=== PATIENT | male | born 1980 | race Caucasian/White ===

== ENCOUNTER 2019-01-21 13:39 | Emergency (ER) | payer MEDICAID ==
[~2019-01-21] VITALS: Ht 180.3 cm; Wt 99.8 kg
[~2019-01-21 13:39] MED LIST: SUBUTEX8 MG SL
[2019-01-21 13:59] VITALS: Ht 180.3 cm; Wt 99.8 kg
[2019-01-21] MEDS ORDERED: VIBRAMYCIN 100100 MG PO (15:30)
[2019-01-21] MEDS ORDERED: VOLTAREN75 MG PO (15:30)
[2019-01-21 16:29] VITALS: BP 142/108
== END 2019-01-21 16:31 | disposition home or self-care (01) ==
LOC: D.ER 13:39
DX: L03.113 Cellulitis of right upper limb (principal)

== ENCOUNTER 2019-11-07 08:11 | Observation (INO) | payer MEDICAID ==
[~2019-11-07] VITALS: Ht 180.3 cm; Wt 99.5 kg
[~2019-11-07 08:11] MED LIST changes: +VIBRAMYCIN 100100 MG PO; +VOLTAREN75 MG PO
[2019-11-07 08:46] LABS: BASOPHILS 0.4 % (0-2); EOSINOPHILS 4.6 % (0-7); HEMATOCRIT 45.4 % (42.0-54.0); HEMOGLOBIN 15.5 g/dL (13.5-17.5); IMMATURE GRANULOCYTES 0.3 % (0-5); LYMPHOCYTES 23.7 % (15-50); MCH 32.3 pg (26.0-34.0); MCHC 34.1 g/dL (31.0-37.0); MCV 94.6 fL (80.0-100.0); MEAN PLATELET VOLUME 9.1 fL (7.4-10.4); MONOCYTES 9.2 % (2-11); NEUTROPHILS 61.8 % (40-80); PLATELET COUNT 246 10x3/uL (130-400); RDW 12.4 % (11.5-14.5); WBC 9.7 10x3/uL (4.8-10.8)
[2019-11-07 08:49] VITALS: BP 159/95
[2019-11-07 08:55] LABS: CALC OSMOLALITY 272 mosm/kg (275-300); CALCIUM 8.1 mg/dL (8.5-10.1); CARBON DIOXIDE 31.9 mmol/L (21.0-32.0); CHLORIDE - SERUM 103 mmol/L (98-107); CREATININE - SERUM 0.8 mg/dL (0.6-1.3); GLUCOSE 106 mg/dL (74-106); POTASSIUM - SERUM 3.8 mmol/L (3.5-5.1); SODIUM 137 mmol/L (136-145); UREA NITROGEN 9 mg/dL (7-18); eGFR NON AFRICAN AMERICAN > 90 mL/min (90-120)
[2019-11-07 09:01] LABS: INR 0.96 (0.85-1.17); PROTIME 12.8 SECONDS (11.6-15.0)
[2019-11-07 09:02] LABS: APTT 29.8 SECONDS (22.8-39.4)
--- NOTE | 2019-11-07 09:05 | NUR ---
URINE SPEC COLLECTED, LABELED AT BS AND SENT TO LAB
[2019-11-07 09:10] LABS: ALBUMIN 3.2 g/dL (3.4-5.0); ALKALINE PHOSPHATASE 48 U/L (30-120); ALT (SGPT) 82 U/L (10-68); AMYLASE - SERUM 70 U/L (25-115); BILIRUBIN - TOTAL 0.35 mg/dL (0.2-1.3); CKMB 1.5 U/L (0.0-3.6); CREATINE KINASE 75 UL (21-232); LIPASE 119 U/L (73-393); MAGNESIUM - SERUM 1.9 mg/dL (1.8-2.4); PROTEIN - SERUM 6.5 g/dL (6.4-8.2)
[2019-11-07 09:11] LABS: TROPONIN-I < 0.017 ng/mL (0.000-0.060)
[2019-11-07 09:16] LABS: UDS - AMPHET NEGATIVE QUAL (NEGATIVE); UDS - BARB NEGATIVE QUAL (NEGATIVE); UDS - BENZO NEGATIVE QUAL (NEGATIVE); UDS - COCAINE NEGATIVE QUAL (NEGATIVE); UDS - OPIATE NEGATIVE QUAL (NEGATIVE); UDS - PCP NEGATIVE QUAL (NEGATIVE); UDS - THC POSITIVE QUAL (NEGATIVE)
[2019-11-07 09:25] LABS: BILIRUBIN NEGATIVE (NEGATIVE); GLUCOSE NEGATIVE (NEGATIVE); KETONE NEGATIVE (NEGATIVE); NITRITE NEGATIVE (NEGATIVE); UROBILINOGEN NORMAL (NORMAL)
[2019-11-07 09:35] VITALS: BP 155/95
--- NOTE | 2019-11-07 13:50 | NUR ---
PT ARRIVED ON UNIT VIA WHEELCHAIR, ALERT AND ORIENTED, HOOKED TO MONITORS,
[2019-11-07 14:00] VITALS: BP 155/97
[2019-11-07 14:10] VITALS: BP 155/97; BMI 30.7
--- NOTE | 2019-11-07 16:33 | NUR ---
NOTIFIED OF CONSULT
[2019-11-07 19:00] VITALS: BP 170/97
[2019-11-07 23:00] VITALS: BP 149/90
--- NOTE | 2019-11-08 02:50 | NUR ---
PT RESTING IN BED WITH EYES CLOSED, CONT POC.
[2019-11-08 03:39] LABS: BASOPHILS 0.2 % (0-2); EOSINOPHILS 4.7 % (0-7); HEMATOCRIT 47.2 % (42.0-54.0); HEMOGLOBIN 15.8 g/dL (13.5-17.5); IMMATURE GRANULOCYTES 0.3 % (0-5); LYMPHOCYTES 23.1 % (15-50); MCH 32.2 pg (26.0-34.0); MCHC 33.5 g/dL (31.0-37.0); MCV 96.1 fL (80.0-100.0); MEAN PLATELET VOLUME 9.1 fL (7.4-10.4); MONOCYTES 9.7 % (2-11); PLATELET COUNT 220 10x3/uL (130-400); RBC 4.91 10x6/uL (4.20-6.10); RDW 12.6 % (11.5-14.5); WBC 9.2 10x3/uL (4.8-10.8)
[2019-11-08 03:57] LABS: CALC OSMOLALITY 271 mosm/kg (275-300); CALCIUM 8.1 mg/dL (8.5-10.1); CARBON DIOXIDE 31.2 mmol/L (21.0-32.0); CHLORIDE - SERUM 102 mmol/L (98-107); GLUCOSE 122 mg/dL (74-106); POTASSIUM - SERUM 3.8 mmol/L (3.5-5.1); SODIUM 136 mmol/L (136-145); UREA NITROGEN 10 mg/dL (7-18); eGFR NON AFRICAN AMERICAN 89 mL/min (90-120)
[2019-11-08 07:00] VITALS: BP 152/107
[2019-11-08 11:00] VITALS: BP 148/84
[2019-11-08 11:48] VITALS: Ht 180.3 cm; Wt 99.5 kg
--- NOTE | 2019-11-08 13:09 | NUR ---
0700REPORT RECIEVED AND CARE ASSUMED OF PATIENT... SEE SHIFT ASSESMENT FOR FINDINGS.. PT IS AWAKE AND ALERT.. HE C/O PAIN IN HIS LEFT ELBOW AND LOW BACK.. REQUEST PAIN MED AT THIS TIME.. MORPHINE IS GIVEN.. 0800 BREAKFAST IS SERVED.. FEEDING SELF.. 0900 DR HER IN TO SEE PATIET.. NO NEW ORDERS AT THIS TIME 1000 PT REQUESTING TO SEE DR HER AGAIN DR CALLED ON THE FLOOR,,, 1030 DR HER IN TO SEE PATIENT NO NEW ORDERS.. 1030 DR MENENDEZ IN TO SEE PATIENT UPDATE IS GIVEN AND ORDERS RECIEVED.. 1200 LOPRESSOR GIVEN AND LUNCH SERVED AT BEDSIDE AND SHE HAD BROUGHT HIM LUNCH.. 1230 PT C/O PAIN MORPHINE IS GIVEN.. REMAINS AT THE BEDSIDE..
--- NOTE | 2019-11-08 13:17 | NUR ---
1200 INCENTIVE SPIROMETRY GIVEN TO PATIENT.. PT PULLED 4000 ON FIRST ATTEMPT.. INSTRUCTED TO USE DURING EVERY COMERCIAL BREAK ON TV
--- NOTE | 2019-11-08 14:47 | NUR ---
0580 DANDY TENDER IN TO DO ECHO.. PER ORDER DR MENENDEZ
--- NOTE | 2019-11-08 15:30 | NUR ---
1520 DC HOME WITH .. ESCORTED TO DOOR VIA WC TO PVT CAR
--- NOTE | 2019-11-10 08:18 | EC ---
PATIENT:ADALBERTO GONZALES DATE OF SERVICE: 11/07/19 SEX: M MEDICAL RECORD: [id number] DATE OF : [birth year] LOCATION:[facility] D230 AGE OF PATIENT: 39 ADMISSION DATE: 11/07/19 REFERRING PHYSICIAN: INTERPRETING PHYSICIAN: NALLELY GARCIA MD ECHOCARDIOGRAM REPORT ECHO CHARGES 4 ECHO COMPLETE Date: 11/08/19 CLINICAL DIAGNOSIS: CP ECHOCARDIOGRAPHIC MEASUREMENTS (adult normal given) AC root (d.<3.7cm) 3.1 cm LV Septum d (<1.2 cm> 1.3 cm Valve Excursion 2.2 cm LV Septum (systole) 1.6 cm Left Atria (s.<4.0cm> 4.0 cm LVPW d(<1.2cm) 1.4 cm RV (d.<2.3cm) 2.9 cm LVPW (sytole) 1.8 cm LV diastole(<5.6CM) 5.1 cm MV E-F(>70mm/sec) cm LV systole 4.3 cm LVOT Diameter 2.0 cm MV exc.(>10mm) cm Est.ejection fraction (50-75%) % DOPPLER: LVIT cm/sec A 49.0 cm/sec E 83.0 cm/sec LA cm/sec RVSP 26.1 mmHg LVOT 100 cm/sec AOP1/2T m/s Asc. Ao 153 cm/sec RVOT 67.0 cm/sec RA cm/sec PA 94.0 cm/sec AV Gradient Peak 9.4 mmHg AV Mean 4.9 mmHg AV Area 1.9 cm MV Gradient Peak 4.6 mmHg MV Mean 1.4 mmHg MV Area cm COMMENTS: Contract Graphic Designer: Maxi VILLANUEVAOE Leadership Development Instructor: 4 Dr. Garcia TAPE# PACS Pericardial Effusion N DATE OF SERVICE: 11/08/2019 PROCEDURE: Transthoracic echocardiogram. FINDINGS: Left ventricle is normal size, shape, and function with mild left ventricular hypertrophy and diastolic dysfunction. Ejection fraction 55%. Left atrium is mildly enlarged at 4.0 cm. The aortic valve is normal with trileaflet structure. ECHOCARDIOGRAM REPORT [id number] ADALBERTO GONZALES Mitral valve is normal structure and function with trivial mitral regurgitation. Tricuspid valve: There is trivial tricuspid regurgitation with RVSP of 26 mmHg. Pericardium is normal. Right ventricle shows mild right ventricular enlargement with mild RVH. Right atrium is mildly enlarged. No pericardial effusion. TRANSINT:[id number] Voice Confirmation ID: [id number] DOCUMENT ID: [id number] NALLELY GARCIA MD at 0818 CC: [id number] DICTATION DATE: 11/09/19 1047 LOG HAULER: 11/09/19 1413 DIS IN 11/08/19 [place] [id number] [place] [id number]
== END 2019-11-08 15:31 | disposition home or self-care (01) ==
LOC: D.ER 08:11 → D.ICU 11:36 → OBSVTIME 13:00 → D.ICU 11-08 15:31
PROVIDERS: Family Medicine; ADMIT Family Medicine; ATTEND Family Medicine
DX: I20.0 Unstable angina (principal); I10 Essential (primary) hypertension; F17.200 Nicotine dependence, unspecified, uncomplicated; F19.11 Other psychoactive substance abuse, in remission; F32.9 Major depressive disorder, single episode, unspecified; G89.29 Other chronic pain; B19.9 Unspecified viral hepatitis without hepatic coma

== ENCOUNTER 2020-07-23 05:32 | Emergency (ER) | payer MEDICAID ==
[~2020-07-23] VITALS: Ht 180.3 cm; Wt 102.3 kg
[~2020-07-23 05:32] MED LIST changes: +MICONAZOLE NITR28 GM TOPICAL
[2020-07-23 05:47] VITALS: BP 149/93; Ht 180.3 cm; Wt 102.3 kg
[2020-07-23] MEDS ORDERED: BUPRENORPHINE HC8 MG SL (06:38)
--- NOTE | 2020-07-23 06:54 | NUR ---
PT IS A HIGH RISK PER DR. NIETO. SITTER ORDERED AND AT BEDSIDE. NOTIFIED CHARGE NURSE AND ATTENDING. SAFETY PLAN INIATED. RESOURCES REVIEWED WITH PT.
[2020-07-23 06:59] LABS: CALC OSMOLALITY 270 mosm/kg (275-300); CARBON DIOXIDE 25.4 mmol/L (21.0-32.0); CHLORIDE - SERUM 99 mmol/L (98-107); CREATININE - SERUM 0.7 mg/dL (0.6-1.3); GLUCOSE 117 mg/dL (74-106); POTASSIUM - SERUM 3.7 mmol/L (3.5-5.1); SODIUM 134 mmol/L (136-145); UREA NITROGEN 19 mg/dL (7-18); eGFR NON AFRICAN AMERICAN > 90 mL/min (90-120)
[2020-07-23 07:03] LABS: UDS - AMPHET POSITIVE QUAL (NEGATIVE); UDS - BARB NEGATIVE QUAL (NEGATIVE); UDS - BENZO NEGATIVE QUAL (NEGATIVE); UDS - COCAINE NEGATIVE QUAL (NEGATIVE); UDS - OPIATE NEGATIVE QUAL (NEGATIVE); UDS - PCP NEGATIVE QUAL (NEGATIVE); UDS - THC POSITIVE QUAL (NEGATIVE)
[2020-07-23 07:06] LABS: ALBUMIN 3.9 g/dL (3.4-5.0); ALKALINE PHOSPHATASE 38 U/L (30-120); ALT (SGPT) 50 U/L (10-68); PROTEIN - SERUM 7.3 g/dL (6.4-8.2)
[2020-07-23 07:18] LABS: BASOPHILS 0.3 % (0-2); EOSINOPHILS 2.4 % (0-7); HEMATOCRIT 45.7 % (42.0-54.0); IMMATURE GRANULOCYTES 0.3 % (0-5); LYMPHOCYTE ABS# 3.81 10x3/uL (1.32-3.57); LYMPHOCYTES 26.7 % (15-50); MCH 31.9 pg (26.0-34.0); MEAN PLATELET VOLUME 9.4 fL (7.4-10.4); MONOCYTES 8.4 % (2-11); NEUTROPHIL ABS# 8.86 10x3/uL (1.78-5.38); NEUTROPHILS 61.9 % (40-80); PLATELET COUNT 257 10x3/uL (130-400); RBC 5.02 10x6/uL (4.20-6.10); WBC 14.3 10x3/uL (4.8-10.8)
[2020-07-23 07:36] LABS: NITRITE NEGATIVE (NEGATIVE)
[2020-07-23 07:37] LABS: AMORPHOUS SEDIMENT >1+ LPF (NONE SEEN); BACTERIA FEW HPF (NONE SEEN); BILIRUBIN NEGATIVE (NEGATIVE); KETONE NEGATIVE (NEGATIVE); SQUAMOUS EPITHELIAL RARE HPF (0-4); UROBILINOGEN NORMAL mg/dL (< 2); WHITE CELLS - URINE NONE SEEN HPF (0-1)
[2020-07-23 09:04] LABS: SARS-CoV-2 ANTIGEN NEGATIVE- SARS-COV-2 (NEGATIVE)
== END 2020-07-23 16:07 | disposition home or self-care (01) ==
LOC: D.ER 05:32
PROVIDERS: Family Medicine
DX: R45.851 Suicidal ideations (principal); F22 Delusional disorders; J45.909 Unspecified asthma, uncomplicated; Z72.0 Tobacco use

== ENCOUNTER 2020-09-03 20:42 | Emergency (ER) | payer MEDICAID ==
[~2020-09-03] VITALS: Ht 180.3 cm; Wt 90.9 kg
[~2020-09-03 20:42] MED LIST changes: +BUPRENORPHINE HC8 MG SL
[2020-09-03 20:43] VITALS: Ht 180.3 cm; Wt 90.9 kg
[2020-09-03 21:19] LABS: BASOPHILS 0.4 % (0-2); EOSINOPHILS 4.8 % (0-7); HEMATOCRIT 43.1 % (42.0-54.0); IMMATURE GRANULOCYTES 0.3 % (0-5); LYMPHOCYTE ABS# 3.47 10x3/uL (1.32-3.57); MCH 31.1 pg (26.0-34.0); MCHC 34.8 g/dL (31.0-37.0); MCV 89.2 fL (80.0-100.0); MEAN PLATELET VOLUME 9.7 fL (7.4-10.4); MONOCYTES 9.5 % (2-11); NEUTROPHIL ABS# 6.06 10x3/uL (1.78-5.38); PLATELET COUNT 261 10x3/uL (130-400); RBC 4.83 10x6/uL (4.20-6.10); RDW 12.2 % (11.5-14.5); WBC 11.2 10x3/uL (4.8-10.8)
[2020-09-03 21:36] LABS: CALC OSMOLALITY 275 mosm/kg (275-300); CALCIUM 8.6 mg/dL (8.5-10.1); CARBON DIOXIDE 29.4 mmol/L (21.0-32.0); CHLORIDE - SERUM 100 mmol/L (98-107); CREATININE - SERUM 0.9 mg/dL (0.6-1.3); GLUCOSE 117 mg/dL (74-106); POTASSIUM - SERUM 3.1 mmol/L (3.5-5.1); SODIUM 137 mmol/L (136-145); UREA NITROGEN 14 mg/dL (7-18); eGFR NON AFRICAN AMERICAN > 90 mL/min (90-120)
[2020-09-03 21:42] LABS: ALBUMIN 3.4 g/dL (3.4-5.0); ALKALINE PHOSPHATASE 49 U/L (30-120); ALT (SGPT) 47 U/L (10-68); BILIRUBIN - TOTAL 0.96 mg/dL (0.2-1.3); MAGNESIUM - SERUM 1.8 mg/dL (1.8-2.4); PROTEIN - SERUM 6.9 g/dL (6.4-8.2)
[2020-09-03 21:49] LABS: UDS - AMPHET POSITIVE QUAL (NEGATIVE); UDS - BARB NEGATIVE QUAL (NEGATIVE); UDS - BENZO NEGATIVE QUAL (NEGATIVE); UDS - COCAINE NEGATIVE QUAL (NEGATIVE); UDS - OPIATE NEGATIVE QUAL (NEGATIVE); UDS - PCP NEGATIVE QUAL (NEGATIVE); UDS - THC POSITIVE QUAL (NEGATIVE)
[2020-09-03 22:03] LABS: BILIRUBIN NEGATIVE (NEGATIVE); KETONE NEGATIVE (NEGATIVE); NITRITE NEGATIVE (NEGATIVE); UROBILINOGEN NORMAL mg/dL (< 2)
[2020-09-03 22:08] LABS: BACTERIA FEW HPF (NONE SEEN); SQUAMOUS EPITHELIAL 0-5 HPF (0-4)
[2020-09-03 23:10] LABS: CKMB 10.7 U/L (0.0-3.6); CREATINE KINASE 569 UL (21-232); TROPONIN-I < 0.017 ng/mL (0.000-0.060)
[2020-09-04 06:28] VITALS: BP 132/75
[2020-09-04] MEDS ORDERED: BUSPAR10 MG PO (12:23)
[2020-09-04] MEDS ORDERED: GEODON20 MG PO (12:25)
[2020-09-04] MEDS ORDERED: ZYPREXA10 MG PO (12:25)
[2020-09-04] MEDS ORDERED: PROZAC10 MG PO (12:26)
[2020-09-04] MEDS ORDERED: LISINOPRIL10 MG PO (12:26)
[2020-09-04] MEDS ORDERED: BENADRYL50 MG PO (12:26)
== END 2020-09-04 06:29 | disposition home or self-care (01) ==
LOC: D.ER 20:42
PROVIDERS: Family Medicine
DX: R41.82 Altered mental status, unspecified (principal); E87.6 Hypokalemia; F15.90 Other stimulant use, unspecified, uncomplicated; J45.909 Unspecified asthma, uncomplicated

== ENCOUNTER 2020-09-04 12:01 | Emergency (ER) | payer MEDICAID ==
[~2020-09-04] VITALS: Ht 180.3 cm; Wt 90.9 kg
[2020-09-04 12:20] VITALS: BP 129/66; Ht 180.3 cm; Wt 90.9 kg
[2020-09-04] MEDS ORDERED: BUSPAR10 MG PO (12:23)
[2020-09-04] MEDS ORDERED: ZYPREXA10 MG PO (12:25)
[2020-09-04] MEDS ORDERED: GEODON20 MG PO (12:25)
[2020-09-04] MEDS ORDERED: PROZAC10 MG PO (12:26)
[2020-09-04] MEDS ORDERED: LISINOPRIL10 MG PO (12:26)
[2020-09-04] MEDS ORDERED: BENADRYL50 MG PO (12:26)
== END 2020-09-04 14:15 | disposition home or self-care (01) ==
LOC: D.ER 12:01
DX: Z76.5 Malingerer [conscious simulation] (principal); R41.0 Disorientation, unspecified